=== PATIENT | female | born 1965 | race Caucasian/White ===

== ENCOUNTER 2019-04-04 08:38 | Emergency (ER) | payer OTHER, SELFPAY ==
[2019-04-04 08:50] VITALS: BP 143/83; PULSE 65; RESP 16; TEMP 37; O2SAT 99
[2019-04-04] MEDS: KETOROLAC 30 MG/ML VIAL (*BKC) IV PUSH (10:10)
[2019-04-04] MEDS: METOCLOPRAMIDE HCL INJ 10 MG/2 ML VIAL IV PUSH (10:11)
[2019-04-04] MEDS: SODIUM CHLORIDE 0.9% IV 1,000 ML 999 ML IV CONT (10:11)
--- NOTE | 2019-04-04 10:21 | ED.GENADULT ---
HPI - General Adult General Chief complaint: Headache Stated complaint: headache Time Seen by Provider: 04/04/19 09:23 Source: patient Mode of arrival: ambulatory Limitations: no limitations History of Present Illness HPI narrative: Patient is a 53-year-old female who presents to emergency department for evaluation of frontal headache that is bandlike in nature has had the headache for the last 3 days with history of headaches historically attempted home medication with no improvement has had some emesis off and on over the course of the last several days patient also notes scratchy throat but denies other URI symptoms presents in no distress Related Data Home Medications Medication Instructions Recorded Confirmed ascorbic acid (vitamin C) 250 mg 250 mg PO DAILY 02/10/19 tablet aspirin 81 mg tablet,delayed 81 mg PO DAILY 02/10/19 release citalopram 40 mg tablet 40 mg PO DAILY 02/10/19 clonazepam 0.5 mg tablet 0.5 mg PO .QHS tablet 02/10/19 cyanocobalamin (vitamin B-12) 2,000 mcg PO DAILY 02/10/19 2,000 mcg tablet,extended release doxycycline hyclate 100 mg tablet 100 mg PO BID tablet 02/10/19 nystatin 100,000 unit/gram topical 1 applic TOPICAL BID 02/10/19 powder pantoprazole 40 mg tablet,delayed 40 mg PO QAM 02/10/19 release pioglitazone 15 mg tablet 15 mg PO DAILY 02/10/19 simvastatin 20 mg tablet 20 mg PO DAILY 02/10/19 vitamin E 600 unit capsule 600 unit PO DAILY 02/10/19 Allergies Allergy/AdvReac Type Severity Reaction Status Date / Time codeine Allergy Unknown Hives Verified 04/04/19 10:04 Review of Systems Review of Systems: Narrative: CONSTITUTIONAL: Denies fever, chills, or sweats. EYES: Denies redness, or discharge. ENT: Denies rhinorrhea, congestion, or otalgia. CARDIOVASCULAR: Denies chest pain RESPIRATORY: Denies cough or dyspnea. GASTROINTESTINAL: Denies abdominal pain, or diarrhea. GENITOURINARY: Denies dysuria or hematuria. SKIN: Denies rash or itching. MUSCULOSKELETAL: Denies back pain, joint pain, or myalgia. NEUROLOGIC: Denies numbness, dizziness, or weakness. [facility] Past Medical History Medical History (Updated 04/04/19 @ 11:04 by Ramez Deepak Young, PA-C) Headache Family History Family History (Updated 10/27/13 @ 07:13 by DOCTOR UNKNOWN) Mother Hypertension Social History Social History Smoking status: Never smoker Second hand tobacco smoke exposure: No Alcohol intake: never Substance use: never Substance use type: does not use Gender identity (if verbalized by the patient): Female Exam Narrative: Exam Narrative: GENERAL: Well-appearing, well-nourished, and in no acute distress. HEAD: Normocephalic, atraumatic. EYES: PERRLA and EOMI. ENT: Nares clear, no rhinorrhea or epistaxis. Mucous membranes moist. Oropharynx without tonsillar hypertrophy exudate or other lesions. Bilateral TMs pearly [place] nonbulging NECK: Supple. No adenopathy or masses. CHEST: Clear to auscultation. No respiratory distress. No wheezes rales or rhonchi HEART: Regular rate and rhythm. No murmur heard. Normal peripheral pulses. EXTREMITIES: Normal range of motion. No edema. SKIN: Warm, dry, no rash. NEURO: No focal deficits. Alert and oriented x3. Cranial nerves II through XII grossly intact. Normal speech and gait PSYCH: Normal mood and affect. Course Course Emergency Course: Patient in the room in no distress aware of case findings treatment plan and diagnosis Vital Signs Vital signs: Vital Signs Temperature 98.6 F 04/04/19 08:50 Pulse Rate 65 04/04/19 08:50 Respiratory Rate 16 04/04/19 08:50 Blood Pressure 143/83 H 04/04/19 08:50 Pulse Oximetry 99 04/04/19 08:50 Temperature 98.6 F 04/04/19 08:50 Pulse Rate 65 04/04/19 08:50 Respiratory Rate 16 04/04/19 08:50 Blood Pressure 143/83 H 04/04/19 08:50 Pulse Oximetry 99 04/04/19 08:50 Medical Decision Making M
[2019-04-04 11:24] VITALS: BP 165/81; PULSE 69; RESP 14; O2SAT 99
== END 2019-04-04 11:30 | disposition home or self-care (01) ==
PROVIDERS: Emergency Provider Emergency Medicine; PCP Family Medicine
DX: R51 Headache (principal)
CPT/HCPCS: 96361; 96374; 96375; 99284; J1200; J1885; J2765; J7030

== ENCOUNTER 2020-04-02 08:06 | Outpatient (CLI) | payer OTHER, SELFPAY ==
--- NOTE | ~2020-04-02 | MM_ITS ---
EXAMINATION: MM screening [facility] BI w vannesa HISTORY: Screening mammogram TECHNIQUE: Craniocaudal and mediolateral oblique 3-D tomosynthesis images were obtained and synthetic 2-D images were generated. CAD analysis was submitted and interpreted. COMPARISON: 08/20/2016 BREAST PARENCHYMAL COMPOSITION: There are scattered areas of fibroglandular density. FINDINGS: Focal asymmetry in the upper left breast persists but is decreased. There is no evidence of suspicious mass, calcification, or architectural distortion to suggest malignancy in either breast. There has been no suspicious interval change. IMPRESSION: 1. No mammographic evidence of malignancy. 2. Recommend routine screening mammography in one year. BI-RADS Category 1: Negative Reviewed, dictated and finalized at location A.
== END 2020-04-02 08:07 | disposition home or self-care (01) ==
PROVIDERS: PCP Family Medicine; Visit Provider Family Medicine
DX: Z12.31 Encounter for screening mammogram for malignant neoplasm of breast (principal)
CPT/HCPCS: 77063; 77067

== ENCOUNTER → 2020-05-22 06:55 | Outpatient (CLI) | payer OTHER, SELFPAY ==
[2020-05-23 02:02] LABS: SARS-CoV-2 RNA PCR Negative
== END ==
PROVIDERS: PCP Family Medicine; Visit Provider Physician Assistant
DX: Z20.822 Contact with and (suspected) exposure to COVID-19 (principal); R05 Cough
CPT/HCPCS: C9803; U0003; U0005

== ENCOUNTER 2020-06-29 09:02 | Emergency (ER) | payer OTHER, SELFPAY ==
--- NOTE | ~2020-06-29 | XR_ITS ---
XR chest 2V 06/29/2020 09:43 Indication: Shortness of breath Procedure: 2 view chest Comparison: 09/23/2010 Findings: Right basilar airspace disease. Heart size normal. Left lung clear. No pleural effusion or pneumothorax. No edema. Impression: 1: Right basilar airspace disease may represent pneumonia and/or atelectasis. Reviewed, dictated and finalized at location B. Impression: 1: Right basilar airspace disease may represent pneumonia and/or atelectasis.
--- NOTE | 2020-06-29 09:13 | ED.SOB ---
HPI - SOB/Dyspnea General Chief Complaint: Shortness of Breath/Dyspnea Stated Complaint: Sob Time Seen by Provider: 06/29/20 09:15 Source: patient Mode of arrival: ambulatory Limitations: no limitations History of Present Illness HPI Narrative: Keysha Hawkins is a 54 yo female with a PMH of diabetes, HTN, high cholesterol, GERD, depression, seasonal allergies, [facility] complaints of shortness of breath started on Thursday and she has a lot of congestion in her sinuses and a dry cough that she says that she has shortness of breath with walking Related Data Home Medications Medication Instructions Recorded Confirmed ascorbic acid (vitamin C) 250 mg 250 mg PO DAILY 02/10/19 10/21/19 tablet aspirin 81 mg tablet,delayed 81 mg PO DAILY 02/10/19 10/21/19 release cyanocobalamin (vitamin B-12) 2,000 mcg PO DAILY 02/10/19 10/21/19 2,000 mcg tablet,extended release pantoprazole 40 mg tablet,delayed 40 mg PO QAM 02/10/19 10/21/19 release vitamin E 600 unit capsule 600 unit PO DAILY 02/10/19 10/21/19 Coq 10 06/29/20 Allergies Allergy/AdvReac Type Severity Reaction Status Date / Time codeine Allergy Unknown Hives Verified 02/27/20 08:55 Review of Systems Review of Systems: Narrative: CONSTITUTIONAL: Denies fever, chills, sweats. EYES: Denies visual changes, redness, discharge. ENT:hasrhinorrhea, has congestion, sore throat, otalgia. Has headache CARDIOVASCULAR: Denies chest pain, palpitations, edema. RESPIRATORY: Denies dyspnea, wheezing, dry cough GASTROINTESTINAL: Denies abdominal pain, nausea, vomiting, diarrhea. GENITOURINARY: Denies dysuria, hematuria, abnormal discharge SKIN: Denies rash or itching. NEUROLOGIC: Denies numbness, or focal weakness. PSYCHIATRIC: Denies anxiety or depression. [facility] Past Medical History Medical History Essential (primary) hypertension Headache History of DVT (deep vein thrombosis) Major depressive disorder, single episode, unspecified Mixed hyperlipidemia Family History Family History Mother Hypertension Social History Social History Smoking status: Never smoker Second hand tobacco smoke exposure: No Alcohol intake: never Substance use: never Substance use type: does not use Gender identity (if verbalized by the patient): Female Comments At time of signature, I agree with nursing past medical, surgical, social and family history. There is no relevant family history pertinent to the presenting complaint. Exam Narrative: Exam Narrative: GENERAL: This is a well-nourished, well-developed patient, in mild distress. HEAD: normocephalic, atraumatic. EYES: Sclera clear/white. Vision is grossly intact. EARS: External ears normal, auditory canals clear on R, fluid behind TM on L and without drainage, TMs normal without perforation. Hearing grossly intact. NOSE: External nose normal without nasal discharge, nares without redness, has Rhinorrhea. No sinus tenderness THROAT: Mucous membranes moist, posterior pharynx erythema has dry cough NECK: Neck supple, non-tender CARDIOVASCULAR: Regular rate and rhythm without murmurs, gallops, or rubs. RESPIRATORY: Coarse to auscultation. Breath sounds equal bilaterally. No wheezes, rales, or rhonchi. GASTROINTESTINAL: Abdomen soft, SKIN: warm, intact with no suspicious lesions or rash, good texture and turgor. NEURO: awake, alert, and oriented to person, place and time. There were no obvious focal neurologic abnormalities. Steady gait EXTREMITIES: Normal range of motion. BACK: Nontender without deformity Course Course Emergency Course: Patient is a 54-year-old with known diabetes, hypertension, high cholesterol, GERD who comes with cough sinus congestion and shortness of breath when walking Chest x-ray results: Right basilar airspace dise
[2020-06-29 09:14] VITALS: BP 154/77; PULSE 64; RESP 16; TEMP 37.3; O2SAT 98
[2020-06-29 09:22] VITALS: BP 154/77; PULSE 64; RESP 16; TEMP 37.3; O2SAT 98
== END 2020-06-29 10:06 | disposition home or self-care (01) ==
PROVIDERS: Emergency Provider Nurse Practitioner; PCP Family Medicine
DX: J18.9 Pneumonia, unspecified organism (principal); I10 Essential (primary) hypertension; Z86.718 Personal history of other venous thrombosis and embolism; E78.2 Mixed hyperlipidemia; E11.9 Type 2 diabetes mellitus without complications; F32.9 Major depressive disorder, single episode, unspecified
CPT/HCPCS: 71046; 99213; G0463

== ENCOUNTER 2020-10-11 10:57 | Emergency (ER) | payer OTHER, SELFPAY ==
--- NOTE | 2020-10-11 11:04 | ED.URI ---
HPI - URI/Sore Throat General Chief Complaint: Upper Respiratory Infection Stated Complaint: Sinus Problem Time Seen by Provider: 10/11/20 11:18 Source: patient and RN notes reviewed Mode of arrival: ambulatory Limitations: no limitations History of Present Illness HPI Narrative: 55-year-old female presents with concern for cough. Reports symptoms started 6 days ago with headache, fever, rhinorrhea, body shakes. Reports those symptoms have resolved, however she still has a persistent cough and is sweating. Reports she has had a Covid vaccine. She reports her was 2 weeks ago, was not tested for Covid. Reports she has been vaccinated for Covid. She denies shortness of breath, loss of taste or smell, current fever. MD elicited complaint: cough Related Data Home Medications Medication Instructions Recorded Confirmed aspirin 81 mg tablet,delayed 81 mg PO DAILY 02/10/19 10/21/19 release cyanocobalamin (vitamin B-12) 2,000 mcg PO DAILY 02/10/19 10/21/19 2,000 mcg tablet,extended release pantoprazole 40 mg tablet,delayed 40 mg PO QAM 02/10/19 10/21/19 release vitamin E 600 unit capsule 600 unit PO DAILY 02/10/19 10/21/19 Coq 10 06/29/20 Allergies Allergy/AdvReac Type Severity Reaction Status Date / Time codeine Allergy Unknown Hives Verified 10/11/20 11:13 Review of Systems Review of Systems: CONSTITUTIONAL: Denies malaise, chills, or fever. Reports sweats EYES: Denies visual changes, redness, or discharge. ENT: Denies rhinorrhea, congestion, sinus pain, otalgia and sore throat. CARDIOVASCULAR: Denies chest pain, palpitations, or edema. RESPIRATORY: Reports cough. Denies dyspnea. GASTROINTESTINAL: Denies abdominal pain, nausea, vomiting, diarrhea SKIN: Denies rash or itching. MUSCULOSKELETAL: Denies myalgia. NEUROLOGIC: Denies headache. All systems reviewed & are unremarkable except as noted in HPI and below PMFSH Past Medical History Medical History Essential (primary) hypertension Headache History of DVT (deep vein thrombosis) Major depressive disorder, single episode, unspecified Mixed hyperlipidemia Family History Family History Mother Hypertension Social History Social History Smoking status: Never smoker Second hand tobacco smoke exposure: No Alcohol intake: never Substance use: never Substance use type: does not use Gender identity (if verbalized by the patient): Female Comments At time of signature, agree with nursing past medical, surgical, social and family history. There is no relevant family history pertinent to the presenting complaint Exam Narrative: GENERAL: Well-appearing, well-nourished, and in no acute distress. HEAD: Normocephalic EYES: PERRLA, conjunctivae clear ENT: Nares clear, turbinates edematous and erythematous, clear discharge. Mucous membranes moist. TM pearly [place] with dull light reflex bilaterally; no tragal tenderness. Oropharynx not erythematous without lesions. Tonsils not enlarged and without exudate, no drooling, no hoarseness, no trismus, uvula midline. NECK: Supple. No lymphadenopathy CHEST: Clear to auscultation, breath sounds equal. No wheezing, rhonchi, rales, or stridor. No respiratory distress, speaks in full sentences. HEART: Regular rate and rhythm. No murmur heard. SKIN: Warm, dry, no rash. NEURO: Alert and oriented x3. PSYCH: Normal mood and affect Course Course Emergency Course: Patient is aware of diagnosis, understands and agrees to treatment plan. Anticipatory guidance given. Patient agrees to follow-up as directed and is aware of reasons to seek care at the emergency department. Portions of this record may have been created with voice recognition software Vital Signs Vital signs: Reviewed. MDM - URI/Sore Throat MDM Narrative Medical decision making narrative:
[2020-10-11 11:07] VITALS: BP 131/65; PULSE 83; RESP 16; TEMP 36.7; O2SAT 98
== END 2020-10-11 11:39 | disposition home or self-care (01) ==
PROVIDERS: Emergency Provider Nurse Practitioner; PCP Family Medicine
DX: U07.1 COVID-19 (principal); I10 Essential (primary) hypertension; E78.2 Mixed hyperlipidemia; Z86.718 Personal history of other venous thrombosis and embolism; Z79.82 Long term (current) use of aspirin
CPT/HCPCS: 87426; 99213; C9803; G0463

== ENCOUNTER 2021-04-24 10:14 | Emergency (ER) | payer OTHER, SELFPAY ==
[2021-04-24 10:26] VITALS: BP 154/79; PULSE 59; RESP 16; TEMP 36; O2SAT 99
--- NOTE | 2021-04-24 10:34 | ED.URI ---
HPI - URI/Sore Throat General Chief Complaint: Upper Respiratory Infection Stated Complaint: uri Time Seen by Provider: 04/24/21 10:35 Source: patient and RN notes reviewed Mode of arrival: ambulatory Limitations: no limitations History of Present Illness HPI Narrative: 55-year-old female presented for complaint of my nose is swollen for about 3 days. Endorses associated tenderness and crust with 'sores' to the tip. Also states about 2 days ago her face and eyes were swollen but have returned to normal. Denies any sinus pressure congestion, cough, shortness of breath, lip or tongue swelling, fever or chills. States she had stopped taking Flonase for about 1 week prior to symptoms flaring up. Related Data Home Medications Medication Instructions Recorded Confirmed aspirin 81 mg tablet,delayed 81 mg PO DAILY 02/10/19 04/24/21 release pantoprazole 40 mg tablet,delayed 40 mg PO QAM 02/10/19 04/24/21 release Allergies Allergy/AdvReac Type Severity Reaction Status Date / Time codeine Allergy Unknown Hives Verified 04/24/21 10:28 Review of Systems Review of Systems: CONSTITUTIONAL: denies malaise, chills, sweats, fever EYES: Denies visual changes, redness, or discharge ENT: Reports rhinorrhea, congestion,denies sinus pain, otalgia, sore throat CARDIOVASCULAR: Denies chest pain, palpitations, edema RESPIRATORY: Reports cough, post nasal drainage. Denies dyspnea GASTROINTESTINAL: Denies abdominal pain, nausea, vomiting, diarrhea SKIN: Denies rash or itching MUSCULOSKELETAL: denies myalgia NEUROLOGIC: Denies headache PMFSH Past Medical History Medical History Essential (primary) hypertension Headache History of DVT (deep vein thrombosis) Major depressive disorder, single episode, unspecified Mixed hyperlipidemia Family History Family History Mother Hypertension Social History Social History Second hand tobacco smoke exposure: No Alcohol intake: never Substance use: never Substance use type: does not use Gender identity (if verbalized by the patient): Female Exam Narrative: GENERAL: well-appearing, nontoxic HEAD: Normocephalic EYES: PERRLA, conjunctivae clear ENT: external nose bilat nares with approx 3mm ulcerated appearing lesion, no active drainage, mild swelling to end of nose, turbinates clear/pink. Mucous membranes moist. TM pearly [place] with dull light reflex bilaterally; no tragal tenderness. Oropharynx erythematous without lesions or exudate, no drooling, no hoarseness, no trismus, uvula midline. No tripod positioning, muffled voice, soft palate or pharyngeal wall bulging NECK: Supple. No lymphadenopathy CHEST: Clear to auscultation, breath sounds equal. No wheezing, rhonchi, rales, or stridor. No respiratory distress, speaks in full sentences. HEART: Regular rate and rhythm. No murmur heard. SKIN: Warm, dry, no rash. NEURO: Alert and oriented x3. PSYCH: Normal mood and affect Course Course Emergency Course: Patient is aware of diagnosis, understands and agrees to treatment plan. Anticipatory guidance given. Patient agrees to follow-up as directed and is aware of reasons to seek care at the emergency department. Portions of this record may have been created with voice recognition software Level of Care: Express Care Visit Vital Signs Vital signs: Vital Signs Temperature 96.8 F L 04/24/21 10:26 Pulse Rate 59 L 04/24/21 10:26 Respiratory Rate 16 04/24/21 10:26 Blood Pressure 154/79 H 04/24/21 10:26 Pulse Oximetry 99 04/24/21 10:26 Temperature 96.8 F L 04/24/21 10:26 Pulse Rate 59 L 04/24/21 10:26 Respiratory Rate 16 04/24/21 10:26 Blood Pressure 154/79 H 04/24/21 10:26 Pulse Oximetry 99 04/24/21 10:26 reviewed MDM - URI/Sore Throat Differential Diagnosis Differential diagnosis: Muna
== END 2021-04-24 10:47 | disposition home or self-care (01) ==
PROVIDERS: Emergency Provider Nurse Practitioner Family; PCP Family Medicine
DX: J00 Acute nasopharyngitis [common cold] (principal); J34.9 Unspecified disorder of nose and nasal sinuses; I10 Essential (primary) hypertension; Z86.718 Personal history of other venous thrombosis and embolism; E78.2 Mixed hyperlipidemia; Z79.82 Long term (current) use of aspirin
CPT/HCPCS: 99213; G0463

== ENCOUNTER 2021-06-12 16:06 | Outpatient (CLI) | payer OTHER, SELFPAY ==
--- NOTE | ~2021-06-12 | MM_ITS ---
EXAMINATION: MM screening [facility] BI w vannesa HISTORY: Screening TECHNIQUE: Craniocaudal and mediolateral oblique 3-D tomosynthesis images were obtained and synthetic 2-D images were generated. CAD analysis was submitted and interpreted. COMPARISON: Comparison to multiple prior studies sequentially, with oldest reviewed study dated 08/20. BREAST PARENCHYMAL COMPOSITION: Breast composed of scattered areas of fibroglandular density FINDINGS: There is no evidence of suspicious mass, calcification, or architectural distortion to sugg est malignancy in either breast. There has been no suspicious interval change. IMPRESSION: 1. No mammographic evidence of malignancy. 2. Recommend routine screening mammography in one year. BI-RADS Category 1: Negative Reviewed, dictated and finalized at location A.
== END 2021-06-12 16:07 | disposition home or self-care (01) ==
LOC: ANHIMG 16:08
PROVIDERS: PCP Family Medicine; Visit Provider Physician Assistant
DX: Z12.31 Encounter for screening mammogram for malignant neoplasm of breast (principal)
CPT/HCPCS: 77063; 77067

== ENCOUNTER 2021-08-28 13:36 | Emergency (ER) | payer OTHER, SELFPAY ==
--- NOTE | ~2021-08-28 | XR_ITS ---
XR ankle RT 2V DATE: 08/28/2021 17:24 INDICATION: Pain and swelling of right ankle. No known injury. TECHNIQUE: AP and lateral views COMPARISON: None FINDINGS: There is diffuse soft tissue swelling of the right ankle. No fracture or dislocation of the ankle or disruption of the ankle mortise. No periosteal reaction or bone destruction. There is posterior and plantar calcaneal enthesopathy. IMPRESSION: Soft tissue swelling of the ankle Plantar and posterior calcaneal enthesopathy Reviewed, dictated and finalized at location B.
--- NOTE | ~2021-08-28 | US_ITS ---
EXAMINATION: US venous doppler LE RT DATE: 08/28/2021 16:48 INDICATION: Right lower limb pain TECHNIQUE: Schwab scale images without and with compression and Doppler images of the right lower extre mity veins were obtained. COMPARISON: 01/18/2016 FINDINGS: The right common femoral vein, profunda femoral vein, femoral vein, popliteal vein, peronea l trunk, posterior tibial veins, and greater saphenous vein are patent. IMPRESSION: 1. Patent right lower extremity veins. No evidence of deep venous thrombosis. Reviewed, dictated and finalized at location A.
[2021-08-28 13:55] VITALS: BP 146/68; PULSE 69; RESP 18; TEMP 36.9; O2SAT 98
--- NOTE | 2021-08-28 16:29 | ED.GENADULT ---
HPI - General Adult General Chief complaint: Extremity Injury, Lower <MEAGHAN Moy Last Filed: 08/28/21 19:41> Stated complaint: right ankle pain <MEAGHAN Moy Last Filed: 08/28/21 19:41> Time Seen by Provider: 08/28/21 16:04 <MEAGHAN Moy Last Filed: 08/28/21 19:41> History of Present Illness HPI narrative: 55-year-old female with a history of DVT in her right lower extremity here for evaluation of atraumatic right ankle pain and swelling today. Patient states that she woke up with some discomfort around her ankle. She states that it has pain whenever she plantar flexes and dorsiflexes the foot. Also notes that the ankle is more swollen than usual. She has been walking but states it is painful. Attempted Tylenol without much relief of her pain. Denies calf pain, fevers, chills, loss of consciousness. <MEAGHAN Moy Last Filed: 08/28/21 19:41> Related Data Home medications: Home Medications Medication Instructions Recorded Confirmed aspirin 81 mg tablet,delayed 81 mg PO DAILY 02/10/19 06/13/21 release pantoprazole 40 mg tablet,delayed 40 mg PO QAM 02/10/19 06/13/21 release <MEAGHAN Moy Last Filed: 08/28/21 19:41> Allergies/adverse reactions: Allergies Allergy/AdvReac Type Severity Reaction Status Date / Time codeine Allergy Unknown Hives Verified 08/28/21 13:59 <MEAGHAN Moy Last Filed: 08/28/21 19:41> Review of Systems Review of Systems: Gen: Denies fevers or chills Eyes: Denies eye pain or visual change ENT: Denies congestion Respiratory: Denies shortness of breath or cough CV: Denies chest pain or palpitations GI: Denies abdominal pain nausea, emesis or diarrhea : denies burning, urgency, frequency or hematuria Musculoskeletal: Reports right ankle pain and swelling. Neuro: Denies numbness, tingling, weakness or focal weakness Skin: Denies rash Except as documented, all other systems reviewed and negative <Kika Mitchell PA-C - Last Filed: 08/28/21 19:41> PMFSH Past Medical History Medical History: Medical History Essential (primary) hypertension Headache History of DVT (deep vein thrombosis) Major depressive disorder, single episode, unspecified Mixed hyperlipidemia <Kika Mitchell PA-C - Last Filed: 08/28/21 19:41> Family History Family History: Family History Mother Hypertension <Kika Mitchell PA-C - Last Filed: 08/28/21 19:41> Social History Social History: Social History Second hand tobacco smoke exposure: No Alcohol intake: never Substance use: never Substance use type: does not use Gender identity (if verbalized by the patient): Female Sexual Orientation (if Verbalized by the Patient): Straight or Heterosexual Spiritual care concerns: No <Kika Mitchell PA-C - Last Filed: 08/28/21 19:41> Exam Narrative: APPEARANCE: Well appearing, no pain in distress, well-nourished. Head: Normocephalic and atraumatic. EYES: PERRLA/EOMI, conjunctivae clear NOSE: No nasal drainage EARS: External ear normal in appearance THROAT: Oropharynx is clear. Mucous membranes are moist. NECK: Supple. No adenopathy, no masses. RESPIRATORY: Airway patent, respirations nonlabored. Clear to auscultation bilaterally, no rales, rhonchi, wheezing. CARDIOVASCULAR: Doppler signals to bilateral DP/PT. Regular rate and rhythm without murmurs, rubs, or gallops. ABDOMINAL: Normoactive bowel sounds. Soft, nontender, nondistended. No rebound tenderness or guarding. MUSCULOSKELETAL: Nonpitting edema noted to right lower extremity over the ankle. Pain in ankle elicited with dorsiflexion and plantar flexion of foot. No pain with passive range of motion. No
[2021-08-28 17:18] VITALS: BP 137/74; PULSE 82; RESP 18; O2SAT 98
[2021-08-28] MEDS: IBUPROFEN 600 MG TABLET PO (17:20)
== END 2021-08-28 17:54 | disposition home or self-care (01) ==
LOC: ANHED 17:34
PROVIDERS: Emergency Provider Emergency Medicine; PCP Family Medicine
DX: M25.571 Pain in right ankle and joints of right foot (principal); I10 Essential (primary) hypertension; Z86.718 Personal history of other venous thrombosis and embolism; F32.9 Major depressive disorder, single episode, unspecified; E78.5 Hyperlipidemia, unspecified
CPT/HCPCS: 73600; 93971; 99284; A9270

== ENCOUNTER 2021-11-29 08:50 | Emergency (ER) | payer OTHER, SELFPAY ==
[2021-11-29 08:59] VITALS: BP 151/75; PULSE 66; RESP 16; TEMP 36.3; O2SAT 99
--- NOTE | 2021-11-29 09:41 | ED.URI ---
HPI - URI/Sore Throat General Chief Complaint: Upper Respiratory Infection Stated Complaint: Sore throat, sinus drainage Time Seen by Provider: 11/29/21 09:41 Source: patient and RN notes reviewed Mode of arrival: ambulatory Limitations: no limitations History of Present Illness HPI Narrative: 56-year-old female presents to the [facility] with complaints of sore throat and sinus drainage since Thursday. Has tried multiple [id number] products with minimal relief. Denies any fevers. Denies any chest pain or abdominal pain. Denies any cough. Patient states the pain and drainage is worse in the morning, gets better throughout the day Related Data Home Medications Medication Instructions Recorded Confirmed aspirin 81 mg tablet,delayed 81 mg PO DAILY 02/10/19 11/29/21 release pantoprazole 40 mg tablet,delayed 40 mg PO QAM 02/10/19 11/29/21 release sertraline 50 mg tablet 50 mg PO DAILY 11/29/21 11/29/21 simvastatin 20 mg tablet 20 mg PO DAILY 11/29/21 11/29/21 Allergies Allergy/AdvReac Type Severity Reaction Status Date / Time codeine Allergy Unknown Hives Verified 11/29/21 09:39 Review of Systems Review of Systems: All systems reviewed & are unremarkable except as noted in HPI and below Constitutional: Constitutional: Reports no additional constitutional complaints, Denies chills and Denies fever(s) Eyes: Eyes: Reports no additional eye complaints ENT: Reports as per HPI, Reports nasal congestion and Reports sore throat Cardiovascular: Cardiovascular: Reports no additional cardiovascular complaints Respiratory: Respiratory: Reports no additional respiratory complaints Gastrointestinal: Gastrointestinal: Reports no additional gastrointestinal complaints Musculoskeletal: Musculoskeletal: Reports no additional musculoskeletal complaints Integumentary/Breasts: Skin/Breast: Reports system reviewed and no additional complaints, except as docu Neurologic: Reports system reviewed and no additional complaints, except as documented Psychiatric: Psychiatric: Reports no additional psychiatric complaints Allergic/Immunologic: Allergic/Immunologic: Reports no additional allergic/immunologic complaints [facility] Past Medical History Medical History Essential (primary) hypertension Headache History of DVT (deep vein thrombosis) Major depressive disorder, single episode, unspecified Mixed hyperlipidemia Family History Family History Mother Hypertension Social History Social History Smoking status: Never smoker Second hand tobacco smoke exposure: No Alcohol intake: never Substance use: never Substance use type: does not use Gender identity (if verbalized by the patient): Female Sexual Orientation (if Verbalized by the Patient): Straight or Heterosexual Spiritual care concerns: No Comments At the time of my signature, I reviewed and agree with the nursing past medical, surgical, social, and family history. There is no relevant family history pertinent to the patient complaint. Exam Const: General: healthy appearing, no acute distress and alert Nutritional Appearance: well nourished Orientation/consciousness: patient oriented x3 Limitations: no limitations HENMT: Head: normal to inspection Ears: external ears normal, TM's normal bilaterally and EAC's normal General nose exam: Normal external nose present Face and sinus: normal facial exam and sinuses nontender Mouth: Yes Normal oral and palatal mucosa present, Yes lip normal and Yes moist mucous membranes Throat: tonsils normal, uvula midline, posterior oropharynx abnormal cobblestoning; no erythema, no exudates and no lacerations, postnasal drainage and no uvular edema Eyes: General: appearance normal, both eyes and all related structures Conjunctivae: conjunctivae normal Pupi
== END 2021-11-29 10:03 | disposition home or self-care (01) ==
PROVIDERS: Emergency Provider Nurse Practitioner; PCP Family Medicine
DX: J06.9 Acute upper respiratory infection, unspecified (principal); R09.82 Postnasal drip; I10 Essential (primary) hypertension; E78.2 Mixed hyperlipidemia; Z86.718 Personal history of other venous thrombosis and embolism; F32.9 Major depressive disorder, single episode, unspecified; Z79.82 Long term (current) use of aspirin
CPT/HCPCS: 87081; 87880; 99213; G0463

== ENCOUNTER 2022-05-01 09:16 | Outpatient (CLI) | payer OTHER, SELFPAY ==
[2022-05-01 09:45] LABS: Basophils Absolute Auto 0.1 K/mm3 (0.0-0.1); Eosinophils Absolute Auto 0.1 K/mm3 (0-0.3); Eosinophils Percent Auto 1.5 % (0-4.4); Hematocrit 42.1 % (37.0-47.0); Hemoglobin 13.6 g/dL (12.0-15.0); Immature Granulocyte Absolute 0.01 K/mm3 (0.00-0.031); Immature Granulocyte Percent A 0.2 % (0-0.5); Lymphocytes Absolute Auto 2.33 K/mm3 (0.9-3.2); Lymphocytes Percent Auto 38.1 % (18.3-44.2); Mean Corpuscular HGB Conc 32.3 g/dl (32-36); Mean Corpuscular Hemoglobin 28.9 pg (26-34); Mean Corpuscular Volume 89.6 fl (80-100); Mean Platelet Volume 10.5 fl (7.4-10.4); Monocytes Absolute Auto 0.4 K/mm3 (0.1-0.6); Neutrophils Absolute Auto 3.2 K/mm3 (1.3-6.7); Neutrophils Percent Auto 52.2 % (45.5-73.1); Platelet Count Result 238 k/mm3 (150-375); Red Cell Distribution Width 13.4 % (11.5-14.5); White Blood Count 6.1 K/mm3 (4.5-10.0)
[2022-05-01 09:46] LABS: Appearance Urine Clear (Clear); Bilirubin Urine Negative (Negative); Blood Urine Negative (Negative); Color Urine Yellow (Yellow); Glucose Urine UA Negative (Negative); Ketones Urine Negative (Negative); Leukocyte Esterase Ur Negative LEU/UL (NEGATIVE); Nitrate Urine Negative (Negative); Protein Urine Negative (Negative); Specific Grav Ur 1.011 (1.001-1.035); Urobilinogen Urine 0.2 mg/dL (<2.0)
[2022-05-01 09:49] LABS: Add Urine Microscopic? NO
[2022-05-01 10:00] LABS: Alanine Aminotransferase 19 U/L (6-35); Albumin Level 4.4 g/dL (3.5-5.1); Alkaline Phosphatase 99 U/L (38-126); Amylase 65 U/L (30-110); Anion Gap 7 mmol/L (8-16); Aspartate Amino Transferase 27 U/L (14-36); Bilirubin,Total 0.7 mg/dL (0.2-1.3); Blood Urea Nitrogen 15 mg/dL (7-17); Calcium 9.1 mg/dL (8.4-10.2); Carbon Dioxide 31 mmol/L (22-30); Chloride 100 mmol/L (98-107); Estimated Glomerular Filt Rate > 60; Glucose 108 mg/dL (65-110); Lipase 92 U/L (23-300); Sodium 138 mmol/L (137-145)
[2022-05-01 10:17] LABS: Vitamin D 25 Hydroxy 72.8 ng/mL
[2022-05-01 10:24] LABS: Hemoglobin A1C 6.2 % (<5.7)
[2022-05-01 10:47] LABS: Creatinine Urine 83.7 mg/dL
[2022-05-01 10:55] LABS: MALB Creatinine Ratio < 7.2 mg/g (0-30); Microalbumin Urine Random < 6.0 mg/L (0-16.7)
[2022-05-01 11:06] LABS: Folic Acid 12.1 ng/mL (2.76->20)
== END 2022-05-01 09:17 | disposition home or self-care (01) ==
PROVIDERS: PCP Family Medicine; Visit Provider Physician Assistant
DX: E11.9 Type 2 diabetes mellitus without complications (principal); E53.8 Deficiency of other specified B group vitamins; E55.9 Vitamin D deficiency, unspecified; E78.2 Mixed hyperlipidemia; I10 Essential (primary) hypertension; K21.9 Gastro-esophageal reflux disease without esophagitis; R10.9 Unspecified abdominal pain
CPT/HCPCS: 36415; 80053; 81003; 82043; 82150; 82306; 82607; 82746; 83036; 83690; 84443; 85025; 87086

== ENCOUNTER 2022-06-18 09:59 | Outpatient (CLI) | payer OTHER, SELFPAY ==
--- NOTE | ~2022-06-18 | US_ITS ---
Duplex Sonography of the bilateral lower extremities: Indication: Pain Sagittal and transverse B-mode images as well as color-flow imaging were performed on the right and l eft femoral and popliteal veins. B-mode examination was done without and with compression in the tra nsverse plane. There is good visualization of the bilateral common femoral, proximal profunda femora l, superficial femoral, greater saphenous, and popliteal veins. Normal flow was seen on color-flow im aging. Normal compressibility was demonstrated. Visualized calf veins are also patent. Impression: No evidence of deep vein thrombosis involving either lower extremity. Reviewed, dictated and finalized at location M. Impression: No evidence of deep vein thrombosis involving either lower extremit y.
== END 2022-06-18 10:00 | disposition home or self-care (01) ==
PROVIDERS: PCP Family Medicine; Visit Provider Family Medicine
DX: M79.662 Pain in left lower leg (principal); M79.89 Other specified soft tissue disorders; R60.9 Edema, unspecified
CPT/HCPCS: 93970

== ENCOUNTER 2023-05-29 10:22 | Emergency (ER) | payer OTHER, SELFPAY ==
[2023-05-29 10:31] VITALS: BP 119/80; PULSE 68; RESP 18; TEMP 36.3; O2SAT 100
--- NOTE | 2023-05-29 10:31 | ED.URI ---
HPI - URI/Sore Throat General Chief Complaint: Upper Respiratory Infection Stated Complaint: Sinus/Cough Time Seen by Provider: 05/29/23 10:41 Source: patient and RN notes reviewed Mode of arrival: ambulatory Limitations: no limitations History of Present Illness HPI Narrative: 57-year-old female presents with concern for one-week history sinus drainage, pressure, pain, productive cough. She is taking DayQuil without relief. Denies fever, shortness of breath, body aches, chills, sweats. MD elicited complaint: cough and nasal congestion Related Data Home Medications Medication Instructions Recorded Confirmed aspirin 81 mg tablet,delayed 81 mg PO DAILY 02/10/19 05/29/23 release pantoprazole 40 mg tablet,delayed 40 mg PO QAM 02/10/19 05/29/23 release sertraline 50 mg tablet 50 mg PO DAILY 11/29/21 05/29/23 Allergies Allergy/AdvReac Type Severity Reaction Status Date / Time codeine Allergy Unknown Hives Verified 05/29/23 10:24 Review of Systems Review of Systems: CONSTITUTIONAL: Denies malaise, chills, sweats, or fever. EYES: Denies visual changes, redness, or discharge. ENT: Reports rhinorrhea, congestion, sinus pain, CARDIOVASCULAR: Denies chest pain, palpitations, or edema. RESPIRATORY: Reports productive cough. Denies dyspnea. GASTROINTESTINAL: Denies abdominal pain, nausea, vomiting, diarrhea SKIN: Denies rash or itching. MUSCULOSKELETAL: Denies myalgia. NEUROLOGIC: Denies headache. All systems reviewed & are unremarkable except as noted in HPI and below PMFSH Past Medical History Medical History Essential (primary) hypertension Headache History of DVT (deep vein thrombosis) Major depressive disorder, single episode, unspecified Mixed hyperlipidemia Family History Family History Mother Hypertension Social History Social History Smoking status: Never smoker Second hand tobacco smoke exposure: No Alcohol intake: never Substance use: never Substance use type: does not use Living arrangements: with family Occupation/Education: occupation Gender identity (if verbalized by the patient): Female Sexual Orientation (if Verbalized by the Patient): Straight or Heterosexual Spiritual care concerns: No Comments At time of signature, agree with nursing past medical, surgical, social and family history. There is no relevant family history pertinent to the presenting complaint Exam Narrative: GENERAL: Well-appearing, well-nourished, and in no acute distress. HEAD: Normocephalic EYES: PERRLA, conjunctivae clear ENT: Nares clear, turbinates edematous and erythematous Mucous membranes moist. TM pearly [place] with dull light reflex bilaterally; no tragal tenderness. Oropharynx not erythematous without lesions. Tonsils not enlarged and without exudate, no drooling, no hoarseness, no trismus, uvula midline. NECK: Supple. No lymphadenopathy CHEST: Clear to auscultation, breath sounds equal. No wheezing, rhonchi, rales, or stridor. No respiratory distress, speaks in full sentences. HEART: Regular rate and rhythm. No murmur heard. SKIN: Warm, dry, no rash. NEURO: Alert and oriented x3. PSYCH: Normal mood and affect Course Course Emergency Course: Patient is aware of diagnosis, understands and agrees to treatment plan. Anticipatory guidance given. Patient agrees to follow-up as directed and is aware of reasons to seek care at the emergency department. Portions of this record may have been created with voice recognition software Level of Care: Express Care Visit Vital Signs Vital signs: Reviewed. MDM - URI/Sore Throat MDM Narrative Medical decision making narrative: Differential diagnosis considered: [place] virus, strep pharyngitis, allergic rhinitis, upper respiratory tract infection, sinusitis, rhinosinusitis, nasoph
== END 2023-05-29 11:00 | disposition home or self-care (01) ==
PROVIDERS: Emergency Provider Nurse Practitioner; PCP Family Medicine
DX: J32.9 Chronic sinusitis, unspecified (principal); J40 Bronchitis, not specified as acute or chronic; I10 Essential (primary) hypertension; E78.2 Mixed hyperlipidemia; F32.9 Major depressive disorder, single episode, unspecified; Z86.718 Personal history of other venous thrombosis and embolism; Z79.82 Long term (current) use of aspirin
CPT/HCPCS: 99213; G0463

== ENCOUNTER 2024-01-14 08:59 | Outpatient (CLI) | payer OTHER, SELFPAY ==
--- NOTE | ~2024-01-14 | MM_ITS ---
EXAMINATION: MM screening braeden BI w vannesa HISTORY: Screening mammogram TECHNIQUE: Craniocaudal and mediolateral oblique 3-D tomosynthesis images were obtained and synthetic 2-D images were generated. CAD analysis was submitted and interpreted. COMPARISON: 06/12/2021, 04/02/2020 BREAST PARENCHYMAL COMPOSITION:Not Dense. There are scattered areas of fibroglandular density. FINDINGS: No suspicious mass, calcification, or architectural distortion are identified in either puma ast to suggest malignancy. There has been no suspicious interval change. IMPRESSION: No mammographic evidence of malignancy. Recommend routine screening mammography in one year. BI-RADS Category 1: Negative Reviewed, dictated and finalized at location . CTIVE CAPTAIN
== END 2024-01-14 09:00 | disposition home or self-care (01) ==
LOC: ANHIMG 09:00
PROVIDERS: PCP Family Medicine; Visit Provider Physician Assistant Medical
DX: Z12.31 Encounter for screening mammogram for malignant neoplasm of breast (principal)
CPT/HCPCS: 77063; 77067

== ENCOUNTER 2024-08-19 08:21 | Emergency (ER) | payer OTHER, SELFPAY ==
--- NOTE | 2024-08-19 08:31 | ED.GENADULT ---
HPI - General Adult General Chief complaint: Extremity Injury, Upper Stated complaint: Left Arm Pain Time Seen by Provider: 08/19/24 08:31 Source: patient Mode of arrival: ambulatory Limitations: no limitations History of Present Illness HPI narrative: 58 yo F presents with pain to L upper arm for approx. 4 days. Denies injury. Described pain as throbbing from mid upper arm extending into elbow. pain worse with movement, lifting. Taking tylenol. All systems reviewed and negative except as noted above. Related Data Home Medications ?Medication ?Instructions ?Recorded ?Confirmed ?Last Taken ?Type aspirin 81 mg tablet,delayed 81 mg PO DAILY 02/10/19 07/29/24 Unknown History release pantoprazole 40 mg tablet,delayed 40 mg PO QAM 02/10/19 07/29/24 Unknown History release coenzyme Q10 100 mg capsule 100 mg PO DAILY 03/21/24 07/29/24 Unknown History (CoQ-10) simvastatin .ROUTE 08/19/24 Unknown History Allergies Allergy/AdvReac Type Severity Reaction Status Date / Time codeine Allergy Unknown Hives Verified 08/19/24 08:52 Review of Systems Review of Systems: CONSTITUTIONAL: Denies fever, chills, or sweats. EYES: Denies visual changes, redness, or discharge. ENT: Denies rhinorrhea, congestion, sore throat, or otalgia. CARDIOVASCULAR: Denies chest pain, palpitations, or edema. RESPIRATORY: Denies cough or dyspnea. GASTROINTESTINAL: Denies abdominal pain, nausea, vomiting, or diarrhea. GENITOURINARY: Denies dysuria or hematuria. SKIN: Denies rash or itching. MUSCULOSKELETAL: Denies back pain . Reports left upper arm pain. NEUROLOGIC: Denies headache, numbness, or weakness. PSYCHIATRIC: Denies anxiety or depression. All other systems reviewed are negative, except as documented in HPI. [facility] Past Medical History Medical History CKD (chronic kidney disease) stage 3, GFR 30-59 ml/min Headache Essential (primary) hypertension History of DVT (deep vein thrombosis) Major depressive disorder, single episode, unspecified Mixed hyperlipidemia Surgical History Surgical History History of arthroscopy of right knee History of carpal tunnel release bilateral History of hysterectomy History of cholecystectomy History of 2 sections Family History Family History Mother Hypertension Social History Social History Smoking status: Never smoker Second hand tobacco smoke exposure: No Alcohol intake: never Substance use: never Substance use type: does not use Do You Feel Safe in your Home?: Yes Lack of Transportation: No Lack of Food: Never True Current Housing: I Have Housing Concerned About Future Housing: No Difficulty Paying Gas/Electric Bills: No Difficulty Paying for Meds: No Currently Unemployed: No Education: High School Diploma/GED Difficulty w/ Childcare or Family Care: No Living arrangements: with family Occupation/Education: occupation Gender identity (if verbalized by the patient): Female Sexual Orientation (if Verbalized by the Patient): Straight or Heterosexual Spiritual care concerns: No Comments At time of signature, agree with nursing past medical, surgical, social and family history. There is no relevant family history pertinent to the presenting complaint. Exam Narrative: GENERAL: This is a well-nourished, well-developed patient, in no apparent distress. HEAD: normocephalic, atraumatic. EYES: PERRL. Sclera clear/white. Vision is grossly intact. EARS: External ears normal NOSE: External nose normal NECK: Neck supple, non-tender without lymphadenopathy, masses or thyromegaly. CARDIOVASCULAR: Regular rate and rhythm without murmurs, gallops, or rubs. RESPIRATORY: Clear to auscultation. Breath sounds equal bilaterally. No wheezes, rales, or rhonchi. SKIN: warm, Dry, intact with no suspicious lesions or rash, good texture and turgor. NEURO: awake, alert, and oriented to person, place and time. There were no obvious focal neurologic abnormalities. EXTREMITIES: muscle and tendon tenderness on palpation without erythema, warmth, or swelling. normal ROM to L shoulder. some change to ROM of L elbow due to pain. bilateral upper extremity strength 5/5, strong senior solutions consultant Course Course Level of Care: Express Care Visit Vital Signs Vital signs: Vital Signs Temperature 36.2 C L 08/19/24 08:32 Pulse Rate 65 08/19/24 08:32 Respiratory Rate 20 08/19/24 08:32 Blood Pressure 107/47 L 08/19/24 08:32 Pulse Oximetry 99 06/20/25 08:32 Oxygen Delivery Room Air 08/19/24 08:32 Temperature 36.2 C L 08/19/24 08:32 Pulse Rate 65 08/19/24 08:32 Respiratory Rate 20 08/19/24 08:32 Blood Pressure 107/47 L 08/19/24 08:32 Pulse Oximetry 99 08/19/24 08:32 Oxygen Delivery Room Air 08/19/24 08:32 Reviewed Medical Decision Making MDM Narrative Medical decision making narrative: treat patient for muscular, tendon injury with methocarbamol and steroid. Recommend she continue Tylenol, ice, rest. Will follow up with primary care physician if pain is not improving. Vital Signs Vital Signs: Vital Signs Temperature 36.2 C L 08/19/24 08:32 Pulse Rate 65 08/19/24 08:32 Respiratory Rate 20 08/19/24 08:32 Blood Pressure 107/47 L 08/19/24 08:32 Pulse Oximetry 99 08/19/24 08:32 Oxygen Delivery Room Air 08/19/24 08:32 Temperature 36.2 C L 08/19/24 08:32 Pulse Rate 65 08/19/24 08:32 Respiratory Rate 20 08/19/24 08:32 Blood Pressure 107/47 L 08/19/24 08:32 Pulse Oximetry 99 08/19/24 08:32 Oxygen Delivery Room Air 08/19/24 08:32 Discharge Plan Discharge Clinical Impression: Muscle strain of left upper extremity Patient Disposition: Home Condition: Stable Instructions: Muscle Strain (ED) Additional Instructions: Take tylenol every 6 to 8 hours as needed for pain. Apply ice as needed for pain. Take medications as prescribed. Do not drive while taking methocarbamol, this medication may make you drowsy. Elevate when at rest. See your doctor if pain not improving. Patient Language: Divehi Prescriptions: New methocarbamol 500 mg tablet 500 mg PO Q6H PRN (Reason: muscle pain/spasm) Qty: 30 0RF methylprednisolone [Medrol (José)] 4 mg tablets,dose pack See Rx Instructions PO .COMPLEX Qty: 21 0RF Rx Instructions: orally per package directions No Action simvastatin .ROUTE aspirin 81 mg tablet,delayed release (DR/EC) 81 mg PO DAILY pantoprazole 40 mg tablet,delayed release (DR/EC) 40 mg PO QAM sertraline 50 mg tablet 50 mg PO DAILY Qty: 90 3RF metformin 500 mg tablet extended release 24 hr 1,000 mg PO QPM Qty: 180 2RF hydrochlorothiazide 25 mg tablet 25 mg PO DAILY Qty: 90 1RF coenzyme Q10 [CoQ-10] 100 mg capsule 100 mg PO DAILY fluticasone propionate [Flonase Allergy Relief] 50 mcg/actuation spray,suspension 2 spray intranasal DAILY Qty: 48 0RF Rx Instructions: administer into each nostril lisinopril 40 mg tablet 40 mg PO DAILY Qty: 90 2RF simvastatin 20 mg tablet 20 mg PO DAILY Qty: 100 2RF nortriptyline 10 mg capsule See Rx Instructions .ROUTE .COMPLEX Qty: 90 3RF Dose Instruction: TAKE 1 CAPSULE BY MOUTH EVERY DAY AT BEDTIME Rx Instructions: TAKE 1 CAPSULE BY MOUTH EVERY DAY AT BEDTIME semaglutide 1 mg/dose (4 mg/3 mL) pen injector 1 mg subcut WEEKLY Qty: 3 2RF Rx Instructions: for 4 weeks diclofenac sodium 75 mg tablet,delayed release (DR/EC) 75 mg PO BID Qty: 60 1RF Follow-up/Referrals: Guanakito Giles MD [Primary Care Provider] - Time of Disposition: 08:52
[2024-08-19 08:32] VITALS: BP 107/47; PULSE 65; RESP 20; TEMP 36.2; O2SAT 99
== END 2024-08-19 08:55 | disposition home or self-care (01) ==
PROVIDERS: Emergency Provider Nurse Practitioner Family; PCP Family Medicine
DX: S46.912A Strain of unspecified muscle, fascia and tendon at shoulder and upper arm level, left arm, initial encounter (principal); X58.XXXA Exposure to other specified factors, initial encounter; I12.9 Hypertensive chronic kidney disease with stage 1 through stage 4 chronic kidney disease, or unspecified chronic kidney disease; N18.30 Chronic kidney disease, stage 3 unspecified; E78.2 Mixed hyperlipidemia; Z86.718 Personal history of other venous thrombosis and embolism; Z79.82 Long term (current) use of aspirin
CPT/HCPCS: 99213; A4565; G0463

== ENCOUNTER 2024-08-26 08:26 | Outpatient (CLI) | payer OTHER, SELFPAY ==
--- NOTE | ~2024-08-26 | XR_ITS ---
EXAM/ PROCEDURE: [id number] - 08/26/2024 8:35 CDT HISTORY: 58 years old Female with Cervicalgia; LT SIDED NECK PAIN THAT RADIATES INTO LT ARM Cervica lgia; LT SIDED NECK PAIN THAT RADIATES INTO LT ARM COMPARISON: None available TECHNIQUE: Three view(s) FINDINGS/ IMPRESSION: There are no fractures or dislocations.Multilevel degenerative changes are seen. Visualized portion o f lungs are clear. Reviewed, dictated and finalized at location A.
== END 2024-08-26 08:27 | disposition home or self-care (01) ==
PROVIDERS: PCP Family Medicine
DX: M47.892 Other spondylosis, cervical region (principal)
CPT/HCPCS: 72040

== ENCOUNTER 2024-11-15 08:41 | Day surgery (SDC) | payer OTHER, SELFPAY ==
[2024-11-09 09:45] VITALS: BMI 35.2
[2024-11-15] VITALS (7 sets, daily range): BP systolic 91–146; BP diastolic 56–90; PULSE 52–66; RESP 12–16; TEMP 36.8; O2SAT 97–100
--- NOTE | ~2024-11-15 | XR_ITS ---
XR fluoroscopy no charge Indication:Leftward C6-7 interlaminar epidural steroid injection TECHNIQUE: Fluoroscopy used during Leftward C6-7 interlaminar epidural steroid injection performed by [Bertin Nelson MD] on 11/15/2024. 21 seconds of fluoroscopy time with 5 fluoroscopic images captured. FINDINGS: Correlate with procedure note. IMPRESSION: Fluoroscopy used during Leftward C6-7 interlaminar epidural steroid injection. Reviewed, dictated and finalized at location O.
--- OUTSIDE RECORDS SUMMARY | 2024-11-15 09:45 | XMS_ITS | Clinical Summary ---
Author Organization [facility] Address [address] [place] [address] Care Team Providers Care Chemical Applicator Name Role Phone Guanakito Giles MD Primary Care Provider [phone] Source Comments [facility] Affiliates and Associated Physician Practices is amultiple site organization consisting of ambulatory clinics and hospital sitesin [place], [place], [place] and [place]. This disclosure is being madepursuant to the Care Everywhere program and may not contain all information available regarding this patient. Last updated 17.[facility] Social History Tobacco Use Types Packs/Day Years Used Date Smoking Tobacco: Never Assessed Comments Unknown Sex and Gender Information Value Date Recorded Sex Assigned at Not on file Legal Sex Female 10:27 AM CDT Gender Identity Not on file Sexual Orientation Not on file Plan of Treatment Health Maintenance Due Date Last Done Comments COLOGUARD (AGES 45-75) - COL ON CA SCREENING 1964 COLON MONITORING 1964 COLONOSCOPY - COLON CA SCREENING 1964 CT COLONOGRAPHY - COLON CA SCREENING 1964 Colorectal Cancer Screening 1964 FIT - COLON CA SCREENING 1964 FLEX SIG - COLON CA SCREENING 1964 LIPID TESTING 1964 MAMMOGRAM 1964 HIV SCREENING 09/11/1979 HEPATITIS C SCREENING 09/06/1982 DTAP/TDAP/TD VACCINES (1 - Tdap) 09/11/1983 PNEUMOCOCCAL VACCINE 50+ (1 of 1 - PCV) 2014 ZOSTER VACCINE (1 of 2) 2014 DEPRESSION SCREENING 03/02/2024 COVID-19 VACCINE (1 - 2023-2 5 season) 2024 INFLUENZA VACCINE (#1) 2024 Respiratory Syncytial Virus (RSV) Vaccine Pt: or over 60 yrs (1 - 1-dose 75+ series) 09/11/2039 HEPATITIS B VACCINE Aged Out No longe r eligible based on patient's age to complete this topic HIB VACCINE Aged Out No longer eligi ble based on patient's age to complete this topic HPV VACCINE Aged Out No longer eligi ble based on patient's age to complete this topic MENINGOCOCCAL (Group B) VACC INE SHARED DECISION-MAKING Aged Out No longer eligibl e based on patient's age to complete this topic MENINGOCOCCAL GROUPS A/C/Y/W VACCINE Aged Out No longer eligible b ased on patient's age to complete this topic Insurance [employer] [facility] Address: [address] [address] [employer] Care Teams Chemical Applicator Relationship Specialty Start Date End Date Guanakito Giles MD [address] [place] [address] PCP - General Family Medicine 10/25/19
--- OUTSIDE RECORDS SUMMARY | 2024-11-15 09:45 | XMS_ITS | Patient Health Record ---
Author Organization [facility] Address [address] [place], [place] [id number] Care Team Providers Care Keyboarding Teacher Name Role Phone AZEB HAMMER Unavailable [phone] Guanakito Giles Unavailable Unavailable Reason For Referral No Information Plan Of Treatment No Information Insurance Providers Payer Name Payer Address Payer Phone Subscriber Number Group Number Insured Name Patient Relationship to Insured Coverage Start Date Coverage End Date [employer] () - [employer] [address] [address] [place], [place] [id number] ERWIN RIOJAS Spouse - patient is the spouse of the insured
--- NOTE | 2024-11-15 10:31 | WPDHPUPDATE1 ---
History and Physical Update Update Date/Time: 11/15/24 10:31 History and Physical has been reviewed, including an updated exam of the patient. There are NO changes in the patient's condition. Risks, benefits, and alternatives have been discussed and questions answered. Patient agrees to proceed with procedure.
--- NOTE | 2024-11-15 10:32 | P.OP_ITS ---
Procedure Note - Detailed Date of Procedure 11/15/24 Pre-op Diagnosis Cervical radiculopathy, cervical spinal stenosis Post-op Diagnosis Same Procedure Performed Leftward Cervical Interlaminar Epidural Steroid Injection at C6-7 under Fluo roscopic Guidance and with Contrast Control. Surgeon Bertin Nelson MD Anesthesia Local Description of Procedure INFORMED CONSENT: Risks, benefits and alternatives to the procedure were discussed in detail with the patient who expressed explicit understanding and consent to proceed. Patient was informed verbally and in written form regarding the risks associated with the procedure including the low risk of serious infection, bleeding/bruising, allergic reaction, nerve or organ injury, paralysis, procedural site pain or discomfort, worsening pain and/or mobility, failure to treat and/or disfigurement. The patient expressed explicit understanding and consent to proceed. All materials required for the procedure were available prior to procedure start. Site and side was marked prior to procedure and confirmed in the presence of the patient. PROCEDURE IN DETAIL: The patient was brought to the procedural suite and placed in the prone position. Patient's head was positioned and stabilized with a ProneView pillow or equivalent. Patient was made comfortable with use of pillows under the chest, hips and ankles. Skin overlying the injection site was prepared broadly with ChloraPrep applicator and draped in a sterile manner. Aseptic technique was employed throughout. The endplates of the vertebral body at the site of interest were aligned in the AP view. Slight caudad tilt and ipsilateral oblique angulation was utilized to optimize visualization of the targeted posterior intervertebral foramen at C6-7. Local anesthesia was established by infiltration with approximately 5 mL of 2% lidocaine via a 1-1/2 inch 27-gauge needle. A 20-gauge 4-inch Tuohy epidural needle was advanced intermittently until appropriate loss of resistance to air was identified via plastic loss of resistance syringe. Lateral view was used to confirm the appropriate positioning of the needle tip within the posterior epidural space. In the AP view, 2.0 mL of Omnipaque 300 contrast medium was injected after negative aspiration for CSF, blood or other bodily fluid, showing appropriate epidural spread of contrast without evidence of intravascular or intrathecal placement. After negative repeat aspiration for CSF, blood or other bodily fluid, A 4 mL solution containing 10 mg of dexamethasone in sterile PF Normal Saline was injected after negative repeat aspiration. Appropriate spread of the injectate was confirmed with washout of previously injected contrast. No parasthesias were elicited. Needle was removed completely intact without difficulty. Images were saved and documented in the patient chart. Patient's skin was cleansed and sterile bandage applied. The patient tolerated the procedure well. The patient was transported to the recovery area in stable condition where they were observed for an appropriate amount of time prior to discharge, without evidence of complication. The patient was instructed to avoid excessive activity for the next 48 hours, including overhead work, reaching or extended device/computer usage. Showers only for 48 hours. They were instructed not to drive or operate heavy machinery for 24 hours. They are to monitor for severe headaches, fevers, chills, night sweats, erythema/swelling at the site or any other signs of infection, bleeding/bruising, bowel or bladder changes as well as new pain, weakness or numbness in the upper or lower extremity. Should they notice these changes, they are instructed to call our office immediately or report directly to the nearest Emergency Department if no answer or if after posted office hours. CONTRAST WASTED: 28mL Omnipaque 300. Complications No immediate complications Condition Stable Disposition Same day [facility] Billing Surgery - Charge Forward: Surgery Billing
[2024-11-15] MEDS: dexAMETHasone SOD PHOS INJ 10 MG/ML 1 ML VIAL IM (10:45)
--- NOTE | 2024-11-15 11:29 | SUR.PHASEII ---
1055 pt nauseaous diorphortic and hypotensive. kept patient with at bedside.
--- NOTE | 2024-11-15 11:30 | SUR.PHASEII ---
pt normal tensive feeling normal per pt. will get ready to d/c
== END 2024-11-15 11:33 | disposition home or self-care (01) ==
PROVIDERS: PCP Family Medicine; Visit Provider Anesthesiology Pain Medicine
PROC: (CPT 62321; principal; 2024-11-15 10:10)
DX: M48.02 Spinal stenosis, cervical region (principal); M54.12 Radiculopathy, cervical region
CPT/HCPCS: 62321; 99199; J1100